=== PATIENT | male | born 1945 | race Caucasian/White ===

== ENCOUNTER 2017-10-28 06:58 | Day surgery (SDC) | payer OTHER ==
[~2017-10-28 06:58] MED LIST: ASA81 MG PO; LISINOPRIL-HCT1 EAC2 PO; SIMVASTATIN20 MG PO
== END 2017-10-28 12:00 | disposition home or self-care (01) ==
LOC: CIR.AMB 06:58
DX: M48.07 Spinal stenosis, lumbosacral region (principal)

== ENCOUNTER 2018-04-21 13:15 | Inpatient (IN) | payer OTHER ==
[~2018-04-21] VITALS: Ht 165.1 cm; Wt 63.5 kg
[2018-04-25] MEDS ORDERED: METROPOLOL PO (11:24)
[2018-05-04] MEDS ORDERED: DOCUSATE SODIU100 MG PO (14:46)
[2018-05-04] MEDS ORDERED: GABAPENTIN800 MG PO (14:46)
[2018-05-04] MEDS ORDERED: CLONAZEPAM1 MG PO (14:48)
[2018-05-04] MEDS ORDERED: PERCOCET 5-3251 EACH PO (14:48)
[2018-05-04] MEDS ORDERED: AMOX-CLAV 875-1 EACH PO (14:48)
== END 2018-05-05 17:41 | DRG 460 ==
LOC: O/R 05-04 05:40 → SURH 05-04 05:40
PROC: 0SG00A0 Fusion of Lumbar Vertebral Joint with Interbody Fusion Device, Anterior Approach, Anterior Column, Open Approach (ICD-10-PCS; principal; 2018-05-05)
PROC: 0SG00AJ Fusion of Lumbar Vertebral Joint with Interbody Fusion Device, Posterior Approach, Anterior Column, Open Approach (ICD-10-PCS; 2018-05-05)
PROC: 0ST20ZZ Resection of Lumbar Vertebral Disc, Open Approach (ICD-10-PCS; 2018-05-05)
PROC: 07DS3ZZ Extraction of Vertebral Bone Marrow, Percutaneous Approach (ICD-10-PCS; 2018-05-05)
DX: M48.061 Spinal stenosis, lumbar region without neurogenic claudication (principal); M43.16 Spondylolisthesis, lumbar region

== ENCOUNTER → 2018-04-25 07:38 | Outpatient (CLI) | payer OTHER ==
[~2018-04-25 07:38] MED LIST changes: +AMOX-CLAV 875-1 EACH PO; +CLONAZEPAM1 MG PO; +DOCUSATE SODIU100 MG PO; +GABAPENTIN800 MG PO; +METROPOLOL PO; +PERCOCET 5-3251 EACH PO
== END | disposition home or self-care (01) ==
LOC: RAD 07:38 → LAB 07:38
DX: D64.89 Other specified anemias (principal); D68.8 Other specified coagulation defects; E03.8 Other specified hypothyroidism; R07.1 Chest pain on breathing; R07.89 Other chest pain

== ENCOUNTER 2019-05-03 06:34 | Outpatient (CLI) | payer OTHER | END 2019-05-03 07:02 | disposition home or self-care (01) | LOC: LAB 06:34 | DX: D47.2 Monoclonal gammopathy (principal); I10 Essential (primary) hypertension; E78.49 Other hyperlipidemia ==

== ENCOUNTER → 2019-05-07 06:35 | Outpatient (CLI) | payer OTHER | END | disposition home or self-care (01) | LOC: LAB 06:35 | DX: D47.2 Monoclonal gammopathy (principal); I10 Essential (primary) hypertension; E78.49 Other hyperlipidemia; I11.9 Hypertensive heart disease without heart failure ==

== ENCOUNTER 2019-08-04 03:37 | Emergency (ER) | payer OTHER ==
[~2019-08-04] VITALS: Ht 165.1 cm; Wt 63.5 kg
== END 2019-08-04 11:52 | disposition home or self-care (01) ==
LOC: ER 03:37
DX: K52.89 Other specified noninfective gastroenteritis and colitis (principal)